=== PATIENT | female | born 1995 | race American Indian/Alaskan Native ===

== ENCOUNTER 2017-09-01 21:46 | Emergency (ER) | payer BC ==
[2017-09-01] MEDS ORDERED: SUBLIMAZE IV ONE (22:23)
[2017-09-01] MEDS ORDERED: SUBLIMAZE ONE (22:30)
[2017-09-01] MEDS ORDERED: KETAMINE HCL IV ONE ×2 (22:30→22:33)
[2017-09-01] MEDS ORDERED: ZOFRAN ONE (22:30)
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
--- NOTE | 2017-09-01 23:05 | XRay Report ---
FINAL REPORT EXAM: XR ELBOW 2V RT HISTORY: elbow pain, deformity TECHNIQUE: Frontal and lateral views of right elbow. PRIORS: None. FINDINGS: Dorsal dislocation of both radiocapitellar and ulnohumeral articulations. Questionable fragmentation of olecranon process cannot exclude small fracture. Diffuse soft tissue edema. Remainder of osseous and soft tissue structures grossly unremarkable. IMPRESSION: 1. Dorsal dislocation right elbow joint as reported.
[2017-09-01] MEDS: ZOFRAN IV ONE (23:43)
[2017-09-02] MEDS ORDERED: ZOFRAN IV ONE (00:23)
[2017-09-02] MEDS: ZOFRAN IV ONE (00:24)
--- NOTE | 2017-09-02 01:01 | XRay Report ---
FINAL REPORT PROCEDURE: Right elbow. TECHNIQUE: Single portable view. HISTORY: Post reduction and elbow pain. COMPARISON: Right elbow done earlier today. FINDINGS: The elbow dislocation appears to be reduced on this single projection. There are no definite fractures, but this is a limited study. There is soft tissue swelling. IMPRESSION: Successful reduction.
[2017-09-02 01:41] VITALS: BP 133/78
== END 2017-09-02 01:58 | disposition home or self-care (01) ==
LOC: ED 21:46
DX: S53.104A Unspecified dislocation of right ulnohumeral joint, initial encounter (principal); X58.XXXA Exposure to other specified factors, initial encounter; Y93.89 Activity, other specified; Y99.8 Other external cause status; Y92.89 Other specified places as the place of occurrence of the external cause
CPT/HCPCS: 24600; 73070; 96374; 96375; 99284; J2405; J3010